=== PATIENT | male | born 1970 | race African-American/Black ===

== ENCOUNTER 2016-12-14 11:29 | Emergency (ER) | payer MEDICARE, MEDICAID ==
[~2016-12-14] VITALS: Ht 185.4 cm; Wt 89.4 kg
[2016-12-14 11:35] VITALS: BP 138/99
== END 2016-12-14 12:18 | disposition left against medical advice (07) ==
LOC: ER 11:29
DX: R55 Syncope and collapse (principal); Z53.21 Procedure and treatment not carried out due to patient leaving prior to being seen by health care provider

== ENCOUNTER 2017-02-12 12:29 | Inpatient (IN) | payer MEDICARE, MEDICAID ==
[~2017-02-12] VITALS: Ht 182.9 cm; Wt 84.9 kg
[2017-02-12] MEDS ORDERED: SODIUM CHLORIDE 0.9% 1,000 ML IV ONE ×2 (12:55)
[2017-02-12 13:56] LABS: Basophils # (auto) 0.2 uL; Basophils % (auto) 1.8 % (0.0-2.0); Eosinophils # (auto) 0.1 uL; Eosinophils % (auto) 0.6 % (0.0-7.0); Hematocrit 35.8 % (41.0-53.0); Lymphocytes # (auto) 3.7 uL; Lymphocytes % (auto) 34.2 % (10.0-50.0); Mean Corpuscular Hemoglobin 31.1 pg (28.0-32.0); Mean Corpuscular Hgb Conc. 33.5 g/dL (32.0-36.0); Mean Corpuscular Volume 92.9 fL (80.0-100.0); Monocytes # (auto) 0.8 uL; Monocytes % (auto) 7.5 % (0.0-12.0); Neutrophils # (auto) 6.1 uL; Neutrophils % (auto) 55.9 % (37.0-80.0); Nucleated Red Blood Cells % 0.2 %; Platelet Count (auto) 138 10^3/uL (140-450); Red Blood Cells 3.85 10^6/uL (4.5-5.90); Red Cell Distribution Width 15.8 % (11.8-14.3); White Blood Cell 10.8 10^3/uL (4.4-10.8)
[2017-02-12 14:10] LABS: INR 1.12 (0.9-1.15); Prothrombin Time 12.2 sec (9.37-12.3)
[2017-02-12 14:19] LABS: Alanine Aminotransferase 111 U/L (16-61); Albumin 2.7 g/dL (3.4-5.0); Alkaline Phosphatase 340 U/L (45-117); Anion Gap 11 (5-15); Aspartate Aminotransferase 325 U/L (15-37); BUN/Creatinine Ratio 8.6; Bilirubin, Total 2.8 mg/dL (0.2-1.0); Blood Urea Nitrogen 6 mg/dL (7-18); Calcium 8.4 mg/dL (8.5-10.1); Carbon Dioxide 23 mmol/L (21-32); Chloride 97 mmol/L (98-107); GFR African American 156 mL/min; GFR Non-African American 129 mL/min; Glucose 124 mg/dL (74-106); Partial Thromboplastin Time 33.7 sec (22.64-33.71); Potassium 3.9 mmol/L (3.5-5.1); Sodium 131 mmol/L (136-145); Total Protein 7.1 g/dL (6.4-8.2)
[2017-02-12] MEDS ORDERED: PROMETHAZINE HCL 25 MG/ML 1ML IV PRN (18:45)
[2017-02-12] MEDS ORDERED: ACETAMINOPHEN 500 MG TAB PO PRN (18:45)
[2017-02-12] MEDS ORDERED: NITROGLYCERIN 0.4 MG SL TAB SL PRN (18:45)
[2017-02-12] MEDS ORDERED: MORPHINE SULF INJ 2 MG/ML SYRINGE 1ML IV PRN ×2 (18:45)
[2017-02-12] MEDS ORDERED: TEMAZEPAM 15 MG CAP PO PRN (18:45)
[2017-02-12] MEDS ORDERED: LACTULOSE 20Gm/30ML SOLN PO PRN (18:45)
[2017-02-12] MEDS ORDERED: LORazepam 0.5 MG TAB PO PRN (18:45)
[2017-02-12] MEDS ORDERED: ASPirin 81 mg TAB PO ONE (19:00)
[2017-02-12] MEDS ORDERED: FLUDROCORTISONE ACETATE 0.1 MG TAB PO ONE (19:00)
[2017-02-12] MEDS ORDERED: ENOXAPARIN SOD 40 MG/0.4 ML SYRINGE SC ONE (19:00)
[2017-02-12 19:45] LABS: Cortisol,PM 8.96 ug/dL (3.09-16.66)
[2017-02-12 20:00] VITALS: BP 162/100
[2017-02-12 20:22] LABS: Folate (Folic Acid) 5.73 ng/mL (5.38-24)
[2017-02-12 22:00] VITALS: BP 162/105
[2017-02-12] MEDS: HYDROcodone-ACET 5/325MG TAB PO PRN (23:24)
[2017-02-13] VITALS (7 sets, daily range): BP systolic 129–179; BP diastolic 84–113
[2017-02-13] MEDS ORDERED: LOSA100T27 PO (01:04)
[2017-02-13] MEDS ORDERED: DULO60CA PO (01:04)
[2017-02-13] MEDS ORDERED: TRAM50TA2 PO (01:04)
[2017-02-13] MEDS ORDERED: ACET-1156 PO (01:04)
[2017-02-13] MEDS ORDERED: DEXL60CA3 PO (01:04)
[2017-02-13] MEDS: SODIUM CHLORIDE 0.9% 1,000 ML IV SCH ×3 (02:15→23:52)
[2017-02-13 05:59] LABS: Alanine Aminotransferase 96 U/L (16-61); Albumin 2.3 g/dL (3.4-5.0); Alkaline Phosphatase 275 U/L (45-117); Anion Gap 13 (5-15); Aspartate Aminotransferase 283 U/L (15-37); BUN/Creatinine Ratio 11.1; Bilirubin, Total 2.8 mg/dL (0.2-1.0); Blood Urea Nitrogen 6 mg/dL (7-18); Calcium 7.8 mg/dL (8.5-10.1); Carbon Dioxide 20 mmol/L (21-32); Chloride 103 mmol/L (98-107); Cholesterol 342 mg/dL (< 200); GFR African American 211 mL/min; GFR Non-African American 174 mL/min; Glucose 100 mg/dL (74-106); HDL Cholesterol 14 mg/dL (40-59); Potassium 4.3 mmol/L (3.5-5.1); Sodium 136 mmol/L (136-145); Triglycerides 691 mg/dL (< 150)
[2017-02-13] MEDS ORDERED: INFLUENZA QUAD 2017-2018 0.5 ML SYRG IM ONE (06:45)
[2017-02-13] MEDS: FLUDROCORTISONE ACETATE 0.1 MG TAB PO SCH (09:03)
[2017-02-13] MEDS: HYDROcodone-ACET 5/325MG TAB PO PRN ×3 (09:03→23:49)
[2017-02-13] MEDS: ASPirin 81 mg TAB PO SCH (09:03)
[2017-02-13] MEDS: ENOXAPARIN SOD 40 MG/0.4 ML SYRINGE SC SCH (09:04)
[2017-02-13 13:36] LABS: Amphetamine Screen, Urine NEGATIVE (NEGATIVE); Barbiturate Scree,Urine NEGATIVE (NEGATIVE); Benzodiazephine Screen, Urine NEGATIVE (NEGATIVE); Cannabinoid Screen, Urine POSITIVE (NEGATIVE); Cocaine Screen, Urine NEGATIVE (NEGATIVE); Opiate Scree,Urine POSITIVE (NEGATIVE); Phencyclidine Screen, Urine NEGATIVE (NEGATIVE)
[2017-02-13 13:57] LABS: Urine Bacteria NONE SEEN /hpf (None Seen); Urine Blood Negative /uL (Negative); Urine Hyaline Cast FEW /lpf (0 - 2); Urine Mucus FEW (None Seen); Urine Specific Gravity 1.022 (1.001-1.035); Urine WBC 2 /hpf (0 - 3)
[2017-02-14] VITALS (7 sets, daily range): BP systolic 134–162; BP diastolic 90–116
[2017-02-14] MEDS: HYDROcodone-ACET 5/325MG TAB PO PRN ×3 (06:42→21:05)
[2017-02-14] MEDS: ASPirin 81 mg TAB PO SCH (09:12)
[2017-02-14] MEDS: FLUDROCORTISONE ACETATE 0.1 MG TAB PO SCH (09:13)
[2017-02-14] MEDS: METOPROLOL SUCCINATE XL 50 MG TAB PO SCH (09:13)
[2017-02-14] MEDS: ENOXAPARIN SOD 40 MG/0.4 ML SYRINGE SC SCH (09:13)
[2017-02-14] MEDS: SODIUM CHLORIDE 0.9% 1,000 ML IV SCH ×2 (09:17→20:45)
[2017-02-14] MEDS ORDERED: METOPROLOL SUCCINATE XL 50 MG TAB PO ONE (17:15)
[2017-02-14] MEDS ORDERED: LORazepam 2MG/ML-1ML VIAL IV PRN (20:15)
[2017-02-15] MEDS: HYDROcodone-ACET 5/325MG TAB PO PRN ×3 (04:25→20:51)
[2017-02-15 05:39] VITALS: BP 148/98
[2017-02-15] MEDS: SODIUM CHLORIDE 0.9% 1,000 ML IV SCH ×2 (07:01→16:45)
[2017-02-15] MEDS ORDERED: ADENOSINE 71 MG in GIVE UN-DILUTED 0 ML IV ONE (08:15)
[2017-02-15 08:30] VITALS: BP 141/108
[2017-02-15 08:56] VITALS: BP 167/110
[2017-02-15 09:46] LABS: Hepatitis B Surface Antibody Negative
[2017-02-15 09:55] LABS: Hepatitis B Surface Antigen Negative (Negative)
[2017-02-15 10:18] LABS: Hepatitis C Antibody Negative (Negative)
[2017-02-15 10:19] LABS: Hepatitis A Total Antibody Negative; Hepatitis B Core Total AB Negative
[2017-02-15] MEDS: METOPROLOL SUCCINATE XL 50 MG TAB PO SCH (11:55)
[2017-02-15] MEDS: ENOXAPARIN SOD 40 MG/0.4 ML SYRINGE SC SCH (11:56)
[2017-02-15] MEDS: FLUDROCORTISONE ACETATE 0.1 MG TAB PO SCH (11:56)
[2017-02-15] MEDS: ASPirin 81 mg TAB PO SCH (11:56)
[2017-02-15 12:22] VITALS: BP 139/91
[2017-02-15 16:29] VITALS: BP 139/96
[2017-02-15 21:34] VITALS: BP 127/88
[2017-02-16] MEDS: SODIUM CHLORIDE 0.9% 1,000 ML IV SCH ×2 (02:45→11:24)
[2017-02-16 04:48] VITALS: BP 145/91
[2017-02-16 09:00] VITALS: BP 143/80
[2017-02-16] MEDS: HYDROcodone-ACET 5/325MG TAB PO PRN (09:04)
[2017-02-16] MEDS: FLUDROCORTISONE ACETATE 0.1 MG TAB PO SCH (09:04)
[2017-02-16] MEDS: METOPROLOL SUCCINATE XL 50 MG TAB PO SCH (09:04)
[2017-02-16] MEDS: ENOXAPARIN SOD 40 MG/0.4 ML SYRINGE SC SCH (09:05)
[2017-02-16] MEDS: ASPirin 81 mg TAB PO SCH (09:07)
[2017-02-16 10:16] VITALS: BP 143/80
[2017-02-16 10:43] VITALS: BP 143/80
== END 2017-02-16 11:10 | disposition home or self-care (01) | DRG 312 ==
LOC: ER 12:29 → TELE-CENTR 12:30
PROVIDERS: ADMIT Internal Medicine; ATTEND Family Medicine
DX: I95.1 Orthostatic hypotension (principal); E11.42 Type 2 diabetes mellitus with diabetic polyneuropathy; K76.0 Fatty (change of) liver, not elsewhere classified; E78.00 Pure hypercholesterolemia, unspecified; E78.1 Pure hyperglyceridemia; E78.5 Hyperlipidemia, unspecified; F10.10 Alcohol abuse, uncomplicated; F17.210 Nicotine dependence, cigarettes, uncomplicated; G89.29 Other chronic pain; I10 Essential (primary) hypertension; K21.9 Gastro-esophageal reflux disease without esophagitis; Z83.3 Family history of diabetes mellitus
CPT/HCPCS: 36415; 70450; 70551; 71045; 74176; 76705; 80053; 80061; 80307; 81001; 82140; 82533; 82550; 82607; 82746; 82962; 83036; 84443; 84484; 85025; 85379; 85610; 85652; 85730; 86141; 86704; 86706; 86708; 86803; 87340; 93005; 93017; 93306; 93886; 95819; 96360; 96361; J0153

== ENCOUNTER 2017-08-02 19:04 | Emergency (ER) | payer MEDICARE, MEDICAID ==
[~2017-08-02 19:04] MED LIST: ACET-1156 PO; DEXL60CA3 PO; DULO60CA PO; LOSA100T27 PO; TRAM100T37 PO; TRAM50TA2 PO
[2017-08-02 20:42] VITALS: BP 108/72
== END 2017-08-02 20:49 | disposition home or self-care (01) ==
LOC: MERGE 19:04 → ER 19:04
DX: M79.672 Pain in left foot (principal); M79.671 Pain in right foot; I10 Essential (primary) hypertension; E78.5 Hyperlipidemia, unspecified; Z76.0 Encounter for issue of repeat prescription

== ENCOUNTER → 2017-08-05 | Emergency (ER) | payer MEDICARE, MEDICAID | END | disposition left against medical advice (07) | LOC: ER 23:04 | DX: M79.672 Pain in left foot (principal); M79.671 Pain in right foot; R10.9 Unspecified abdominal pain; Z53.21 Procedure and treatment not carried out due to patient leaving prior to being seen by health care provider ==

== ENCOUNTER 2017-11-01 10:27 | Emergency (ER) | payer MEDICARE, MEDICAID ==
[~2017-11-01] VITALS: Ht 182.9 cm; Wt 82.6 kg
[~2017-11-01 10:27] MED LIST changes: +LOSA-49 PO; -LOSA100T27 PO
[2017-11-01 10:50] VITALS: BP 108/68
[2017-11-01 11:24] LABS: Basophils # (auto) 0.1 uL; Eosinophils # (auto) 0 uL; Hemoglobin 15.8 g/dL (13.5-17.5); Neutrophils # (auto) 2.9 uL
[2017-11-01 11:26] LABS: Basophils % (auto) 1.1 % (0.0-2.0); Eosinophils % (auto) 0.7 % (0.0-7.0); Hematocrit 48.6 % (41.0-53.0); Lymphocytes % (auto) 37.6 % (10.0-50.0); Mean Corpuscular Hemoglobin 31.1 pg (28.0-32.0); Mean Corpuscular Hgb Conc. 32.5 g/dL (32.0-36.0); Mean Corpuscular Volume 95.8 fL (80.0-100.0); Monocytes # (auto) 0.4 uL; Monocytes % (auto) 6.8 % (0.0-12.0); Neutrophils % (auto) 53.8 % (37.0-80.0); Nucleated Red Blood Cells % 0.1 %; Platelet Count (auto) 56 10^3/uL (140-450); Red Blood Cells 5.08 10^6/uL (4.5-5.90); Red Cell Distribution Width 12.2 % (11.8-14.3); White Blood Cell 5.3 10^3/uL (4.4-10.8)
[2017-11-01 11:42] LABS: Alanine Aminotransferase 102 U/L (16-61); Alkaline Phosphatase 190 U/L (45-117); Anion Gap 8 (5-15); Aspartate Aminotransferase 340 U/L (15-37); BUN/Creatinine Ratio 4.6; Bilirubin, Total 0.9 mg/dL (0.2-1.0); Blood Urea Nitrogen 3 mg/dL (7-18); Calcium 8.3 mg/dL (8.5-10.1); Carbon Dioxide 21 mmol/L (21-32); Chloride 107 mmol/L (98-107); GFR African American 169 mL/min; GFR Non-African American 140 mL/min; Glucose 89 mg/dL (74-106); Magnesium 2.3 mg/dL (1.6-2.6); Potassium 4.1 mmol/L (3.5-5.1); Sodium 136 mmol/L (136-145); Total Protein 8.1 g/dL (6.4-8.2)
== END 2017-11-01 14:26 | disposition home or self-care (01) ==
LOC: ER 10:27
DX: R55 Syncope and collapse (principal); F10.120 Alcohol abuse with intoxication, uncomplicated; I10 Essential (primary) hypertension; E78.5 Hyperlipidemia, unspecified; F17.210 Nicotine dependence, cigarettes, uncomplicated; F12.10 Cannabis abuse, uncomplicated
CPT/HCPCS: 36415; 70450; 71046; 80053; 80320; 82962; 83735; 84484; 85025; 93005; 94761

== ENCOUNTER 2018-04-26 13:54 | Emergency (ER) | payer MEDICARE, MEDICAID ==
[~2018-04-26] VITALS: Ht 185.4 cm; Wt 68.0 kg
[2018-04-26 14:01] VITALS: BP 146/89
[2018-04-26] MEDS ORDERED: SODIUM CHLORIDE 0.9% 500 ML IVB ONE (14:25)
[2018-04-26 15:52] LABS: Basophils # (auto) 0 uL; Basophils % (auto) 0.1 % (0.0-2.0); Eosinophils # (auto) 0 uL; Hematocrit 42.2 % (41.0-53.0); Hemoglobin 14.2 g/dL (13.5-17.5); Lymphocytes # (auto) 0.6 uL; Lymphocytes % (auto) 5.5 % (10.0-50.0); Mean Corpuscular Hemoglobin 31.5 pg (28.0-32.0); Mean Corpuscular Hgb Conc. 33.6 g/dL (32.0-36.0); Mean Corpuscular Volume 93.8 fL (80.0-100.0); Monocytes # (auto) 0.7 uL; Monocytes % (auto) 6.9 % (0.0-12.0); Neutrophils # (auto) 9.3 uL; Neutrophils % (auto) 87.5 % (37.0-80.0); Nucleated Red Blood Cells % 0.1 %; Platelet Count (auto) 85 10^3/uL (140-450); White Blood Cell 10.6 10^3/uL (4.4-10.8)
[2018-04-26 16:04] LABS: Albumin 3.4 g/dL (3.4-5.0); BUN/Creatinine Ratio 9.8; Calcium 9.4 mg/dL (8.5-10.1); Magnesium 1.9 mg/dL (1.6-2.6); Potassium 3.5 mmol/L (3.5-5.1)
[2018-04-26 16:07] LABS: Bilirubin, Total 2.6 mg/dL (0.2-1.0); Total Protein 8.8 g/dL (6.4-8.2)
[2018-04-26] MEDS ORDERED: ONDANSETRON HCL 4 MG/2 ML VIAL ONE (19:41)
[2018-04-26] MEDS ORDERED: ONDANSETRON HCL 4 MG/2 ML VIAL IV ONE (19:45)
== END 2018-04-26 20:15 | disposition home or self-care (01) ==
LOC: EDBD 13:54 → ER 13:54 → EDUNIT# 13:54 → ER 20:15
DX: R10.9 Unspecified abdominal pain (principal); R11.2 Nausea with vomiting, unspecified; R07.9 Chest pain, unspecified; E11.9 Type 2 diabetes mellitus without complications; E78.5 Hyperlipidemia, unspecified; I10 Essential (primary) hypertension; F17.210 Nicotine dependence, cigarettes, uncomplicated; Z79.899 Other long term (current) drug therapy
CPT/HCPCS: 36415; 74176; 80053; 82150; 83690; 83735; 85025; 93005; 94761; 96361; 96374; 99284; J2405; J7040

== ENCOUNTER 2020-07-10 07:53 | Emergency (ER) | payer MEDICARE, MEDICAID ==
[~2020-07-10] VITALS: Ht 182.9 cm; Wt 77.1 kg
[~2020-07-10 07:53] MED LIST changes: -DEXL60CA3 PO; +DEXL60CA4 PO; +LOSA-39 PO; -LOSA-49 PO
[2020-07-10 08:17] VITALS: BP 122/83
== END 2020-07-10 08:45 | disposition home or self-care (01) ==
LOC: ER 07:53
DX: G62.9 Polyneuropathy, unspecified (principal); I10 Essential (primary) hypertension; E11.9 Type 2 diabetes mellitus without complications; E78.5 Hyperlipidemia, unspecified; F17.210 Nicotine dependence, cigarettes, uncomplicated; Z76.0 Encounter for issue of repeat prescription; Z79.899 Other long term (current) drug therapy

== ENCOUNTER 2020-09-19 15:37 | Emergency (ER) | payer MEDICARE, MEDICAID ==
[~2020-09-19] VITALS: Ht 182.9 cm; Wt 77.1 kg
[2020-09-19 17:46] VITALS: BP 95/72
== END 2020-09-19 17:49 | disposition home or self-care (01) ==
LOC: ER 15:39
DX: G62.9 Polyneuropathy, unspecified (principal); I10 Essential (primary) hypertension; E11.9 Type 2 diabetes mellitus without complications; E78.5 Hyperlipidemia, unspecified; F17.210 Nicotine dependence, cigarettes, uncomplicated; Z76.0 Encounter for issue of repeat prescription; Z79.899 Other long term (current) drug therapy

== ENCOUNTER 2020-11-01 21:11 | Emergency (ER) | payer MEDICARE, MEDICAID ==
[~2020-11-01] VITALS: Ht 182.9 cm; Wt 78.5 kg
[2020-11-01 21:13] VITALS: BP 153/94
== END 2020-11-01 22:23 | disposition left against medical advice (07) ==
LOC: ER 21:11
DX: Z76.0 Encounter for issue of repeat prescription (principal); Z53.21 Procedure and treatment not carried out due to patient leaving prior to being seen by health care provider

== ENCOUNTER 2023-10-15 05:08 | Inpatient (IN) | payer MEDICARE, MEDICAID ==
[~2023-10-15] VITALS: Ht 185.4 cm; Wt 85.0 kg
[~2023-10-15 05:08] MED LIST changes: -ACET-1156 PO; +ACET-1881 PO; -DULO60CA PO; +DULO60CA41 PO; -LOSA-39 PO; +LOSA-535 PO; +TRAM100T32 PO; -TRAM100T37 PO
[2023-10-15 06:42] LABS: Alanine Aminotransferase 23 U/L (7-40); Albumin 4.3 g/dL (3.2-4.8); Alkaline Phosphatase 176 U/L (46-116); Anion Gap 5 (5-15); Aspartate Aminotransferase 34 U/L (13-40); BUN/Creatinine Ratio 8.1 (10.0-20.0); Bilirubin, Total 0.2 mg/dL (0.2-1.0); Blood Urea Nitrogen 5 mg/dL (9-23); Calcium 8.9 mg/dL (8.7-10.4); Carbon Dioxide 20 mmol/L (20-30); Chloride 109 mmol/L (98-107); Glucose 103 mg/dL (74-106); Potassium 4.2 mmol/L (3.5-5.1); Sodium 134 mmol/L (136-145); Total Protein 8.2 g/dL (5.7-8.2)
[2023-10-15 06:46] LABS: Eosinophils # (auto) 0.1 10 ^3/uL (0-0.8); Hemoglobin 8.1 g/dL (13.5-17.5); Mean Corpuscular Hemoglobin 19.9 pg (28.0-32.0); Monocytes # (auto) 1.6 10 ^3/uL (0-1.3)
[2023-10-15 06:48] LABS: Basophils # (auto) 0.3 10 ^3/uL (0-0.2); Basophils % (auto) 2.4 % (0.0-2.0); Eosinophils % (auto) 0.8 % (0.0-7.0); Lymphocytes # (auto) 1.7 10 ^3/uL (0.4-5.4); Lymphocytes % (auto) 14.8 % (10.0-50.0); Mean Corpuscular Hgb Conc. 28.7 g/dL (32.0-36.0); Mean Corpuscular Volume 69.1 fL (80.0-100.0); Monocytes % (auto) 13.3 % (0.0-12.0); Neutrophils % (auto) 68.7 % (37.0-80.0); Platelet Count (auto) 318 10^3/uL (140-450); Red Blood Cells 4.06 10^6/uL (4.5-5.90); Red Cell Distribution Width 21.7 % (11.8-14.3); White Blood Cell 11.7 10^3/uL (4.4-10.8)
[2023-10-15 07:27] LABS: Platelet Estimate Adequate
[2023-10-15 07:28] LABS: Anisocytosis Slight; Hypochromia Moderate; Ovalocytes FEW; Target Cell FEW
[2023-10-15 07:50] VITALS: TEMP 98.5; O2SAT 98
[2023-10-15] MEDS: ONDANSETRON HCL 4 MG/2 ML VIAL IM ONE (08:00)
[2023-10-15] MEDS: MORPHINE SULFATE 4 MG/ML SYR/VIAL IV ONE (08:20)
[2023-10-15 08:50] VITALS: BP 158/89; PULSE 99; RESP 16
[2023-10-15] MEDS ORDERED: DOCUSATE SOD 100 MG CAP PO PRN (10:45)
[2023-10-15] MEDS ORDERED: HYDROmorphone HCL 2 MG/ML VL/or syr IV PRN (10:45)
[2023-10-15] MEDS ORDERED: ONDANSETRON HCL 4 MG/2 ML VIAL IV PRN (10:45)
[2023-10-15] MEDS ORDERED: ACETAMINOPHEN 325 MG TAB PO PRN (10:45)
[2023-10-15] MEDS ORDERED: LACTATED RINGER'S 1,000 ML IV ONE (10:45)
[2023-10-15] MEDS ORDERED: HYDROcodone-ACET 5/325MG TAB PO PRN (10:45)
[2023-10-15] MEDS ORDERED: SODIUM CHLOR 0.9% PF (SALINE LOCK) 10ML VIAL/SYR IV SCH (14:00)
[2023-10-16] MEDS ORDERED: PANTOPRAZOLE 40 MG/10 ML VIAL INJ IV SCH (06:00)
[2023-10-16] MEDS ORDERED: LOSARTAN POTASSIUM 50 MG TAB PO SCH (10:00)
[2023-10-16] MEDS ORDERED: DULoxetine HCL 30 MG CAP PO SCH (10:00)
[2023-10-16] MEDS ORDERED: ENOXAPARIN SOD 40 MG/0.4 ML SYRINGE SC SCH (10:00)
== END 2023-10-15 11:20 | disposition left against medical advice (07) | DRG 312 ==
LOC: EDBD 05:08 → ER 05:08 → TELE 10:39
PROVIDERS: ADMIT Internal Medicine; ATTEND Internal Medicine
DX: I95.1 Orthostatic hypotension (principal); I10 Essential (primary) hypertension; E78.5 Hyperlipidemia, unspecified; E11.9 Type 2 diabetes mellitus without complications; Z53.29 Procedure and treatment not carried out because of patient's decision for other reasons; F17.210 Nicotine dependence, cigarettes, uncomplicated; S70.02XA Contusion of left hip, initial encounter; W18.39XA Other fall on same level, initial encounter; Y93.89 Activity, other specified; Y92.89 Other specified places as the place of occurrence of the external cause; Y99.8 Other external cause status; Z80.41 Family history of malignant neoplasm of ovary
CPT/HCPCS: 36415; 70450; 72125; 73502; 80053; 83880; 84484; 85025; 93005; 96372; 96374; G0378; J2405